=== PATIENT | male | born 1990 | race Caucasian/White ===

== ENCOUNTER 2017-08-25 00:21 | Emergency (ER) | payer OTHER ==
[~2017-08-25] VITALS: Ht 172.7 cm; Wt 78.5 kg
[2017-08-25 00:27] VITALS: BP 137/90
--- NOTE | 2017-08-25 00:33 | NUR ---
PATIENT PRESENTS TO ED WITH REDNESS, EDEMA, AND PAIN FROM KNUCKLE OF LEFT INDEX TO TIP OF INDEX FINGER X1 DAY. PT STATES HE FELL AT HOME X1 DAY AGO. PAIN IS SEVERE. CMS INTACT. DENIES N/V/D; SKIN IS PINK/WARM/DRY; AAOX4 WITH EVEN AND STEADY GAIT; LUNGS CLEAR BL; HR EVEN AND REGULAR; PT DENIES ANY FEVER, CP, SOB, OR COUGH AT THIS TIME; PATIENT STATES PAIN OF 9/10 AT THIS TIME; VSS; PATIENT POSITIONED FOR COMFORT; HOB ELEVATED; BEDRAILS UP X1; BED DOWN. ER MD MADE AWARE OF PT STATUS. CONTINUE TO MONITOR.
--- NOTE | 2017-08-25 00:33 | NUR ---
PT AMBULATED TO BED 3
--- NOTE | 2017-08-25 00:38 | NUR ---
Dr. Watson evaluating patient at bedside.
[2017-08-25] MEDS ORDERED: KETOROLAC 60 MG/2 ML VIAL IM ONE (00:40)
--- NOTE | 2017-08-25 01:00 | NUR ---
LEFT FINGER SPLINT PLACED BY EMT. CMS INTACT.
[2017-08-25 01:16] VITALS: BP 137/90
--- NOTE | 2017-08-25 01:16 | NUR ---
Patient discharged with v/s stable. Written and verbal after care instructions given and explained. Patient alert, oriented and verbalized understanding of instructions. Ambulatory with steady gait. All questions addressed prior to discharge. ID band removed. Patient advised to follow up with PMD. Rx of NORCAO AND MOTRIN given. Patient educated on indication of medication including possible reaction and side effects. Opportunity to ask questions provided and answered.
== END 2017-08-25 01:16 | disposition home or self-care (01) ==
LOC: MED 00:21
DX: S62.623A Displaced fracture of middle phalanx of left middle finger, initial encounter for closed fracture (principal); W18.39XA Other fall on same level, initial encounter; Y93.89 Activity, other specified; Y92.89 Other specified places as the place of occurrence of the external cause; Y99.8 Other external cause status; F12.10 Cannabis abuse, uncomplicated
CPT/HCPCS: 29130; 73140; 96372; 99284; J1885